=== PATIENT | female | born 1990 | race American Indian/Alaskan Native ===

== ENCOUNTER 2018-01-25 12:34 | Emergency (ER) | payer OTHER ==
[2018-01-25 12:34] VITALS: BMI 23.8
[2018-01-25 12:52] VITALS: TEMP 97.8; O2SAT 100
--- NOTE | 2018-01-25 12:57 | C.PDOC ---
History Of Present Illness 27 year old female with a history of seizures presents to the ER for evaluation of witnessed seizure. As per triage and patient family member, the patient was visiting family in ICU and had a witnessed seizure. Rapid response was called in ICU and patient was brought down to ED. Patient reports she takes Phenytoin for seizures but her PMD recently changed her medication to Keppra on 2017. She states she ate breakfast. Patient admits to feeling dizzy before seizure onset. Denies any cough, fever, chills, shortness of breath, nausea, vomiting, or other associated symptoms. Patient denies any trauma/injuries. Time Seen by Provider: 01/25/18 12:41 Chief Complaint (Nursing): Seizure History Per: Patient, Family History/Exam Limitations: no limitations Recent Seizure Activity Began: Just Before Arrival Number Of Seizures: One Precipitating Factor(s): Recent Change In Medication Or Dose Past Medical History Reviewed: Historical Data, Nursing Documentation, Vital Signs Vital Signs: Last Vital Signs Temp 97.8 F 01/25/18 12:52 Pulse 87 01/25/18 14:58 Resp 16 01/25/18 14:58 BP 102/66 01/25/18 14:58 Pulse Ox 100 01/25/18 14:58 - Medical History PMH: Asthma, Seizures Denies: Chronic Kidney Disease Surgical History: No Surg Hx Family History: States: No Known Family Hx - Social History Hx Alcohol Use: No Hx Substance Use: No - Immunization History Hx Tetanus Toxoid Vaccination: No Review Of Systems Constitutional: Negative for: Fever, Chills Respiratory: Negative for: Cough, Shortness of Breath Gastrointestinal: Negative for: Nausea, Vomiting Neurological: Positive for: Seizures (Postictal ), Dizziness Physical Exam - Physical Exam Appears: Non-toxic, No Acute Distress Skin: Normal Color, Warm, Dry Head: Atraumatic, Normacephalic Eye(s): bilateral: Normal Inspection Oral Mucosa: Moist Tongue: Normal Appearing Lips: Normal Appearing Gingiva: Normal Appearing Throat: Normal Neck: Normal ROM Chest: Symmetrical Cardiovascular: Rhythm Regular, No Murmur Respiratory: Normal Breath Sounds, No Rales, No Rhonchi, No Wheezing Extremity: Bilateral: Atraumatic, Normal Color And Temperature, Normal ROM Neurological/Psych: Oriented x3, Normal Speech Gait: Steady ED Course And Treatment - Laboratory Results Result Diagrams: 01/25/18 13:03 07/08/18 13:03 Lab Interpretation: No Acute Changes ECG: Interpreted By Me, Viewed By Me ECG Rhythm: Sinus Rhythm ECG Interpretation: No Acute Changes Rate From EC O2 Sat by Pulse Oximetry: 100 (RA) Pulse Ox Interpretation: Normal Medical Decision Making Medical Decision Making: Impression: seizure Plan: - EKG - Labs - UA Labs reviewed, phenytoin low, keppra level is send out and will result. Will give loading dose of medication. On assessment, patient is alert, awake and oriented and offers no complaints. Patient feels comfortable going home and will be discharged. Patient given follow up instructions. Instructed to return to ER if symptoms worsen or new symptoms arise. Disposition Counseled Patient/Family Regarding: Diagnosis, Need For Followup - Disposition Disposition: HOME/ ROUTINE Disposition Time: 14:11 Condition: STABLE Additional Instructions: Follow up with your primary medical doctor or clinic in 2-5 days for further evaluation. Take your usual seizure medications as prescribed. Return to the emergency department at any time if symptoms persist or worsen. Instructions: Seizures, Adult (DC) Forms: [employer] (Persian) - POA Present On Arrival: None - Clinical Impression Clinical Impression: Seizure disorder - PA / PERSONAL DRIVER / Resident Statement MD/DO has reviewed & agrees with the documentation as recorded. - Scribe Statement The provider has reviewed the documentation as recorded by the Scribe Salina Kaplan All medical record entries made by the Valentinoibsam were at my direction and personally dictated by me. I have reviewed the chart and agree that the record accurately reflects my personal performance of the history, physical exam, medical decision making, and the department course for this patient. I have also personally directed, reviewed, and agree with the discharge instructions and disposition.
[2018-01-25 13:10] LABS: BASO % 0.8 % (0.0-2.0); EOS # 0.6 K/uL (0.0-0.7); EOS % 9.8 % (0.0-4.0); HEMOGLOBIN 13.5 g/dL (11.0-16.0); LYMPH # 2.6 K/uL (1.0-4.3); LYMPH % 44.1 % (20.0-40.0); MEAN CELL VOLUME 82.5 fL (81.0-99.0); MEAN CORPUSCULAR HEMOGLOBIN 28.1 pg (27.0-31.0); MEAN PLATELET VOLUME 8.9 fL (7.2-11.7); MONO # 0.6 K/uL (0.0-0.8); MONO % 9.6 % (0.0-10.0); NEUT # 2.1 K/uL (1.8-7.0); NEUT % 35.7 % (50.0-75.0); NRBC % 0.1 % (0.0-2.0); RBC 4.81 Mil/uL (3.80-5.20); WHITE BLOOD COUNT 5.8 K/uL (4.8-10.8)
[2018-01-25 13:21] LABS: ALB/GLOB RATIO 1.2 (1.0-2.1); ALBUMIN 4.3 g/dL (3.5-5.0); ALT/SGPT 30 U/L (9-52); AST/SGOT 25 U/L (14-36); BLOOD UREA NITROGEN 7 mg/dL (7-17); CALCIUM 9.5 mg/dl (8.6-10.4); GFR AFRICAN-AMERICAN > 60; GFR NON-AFRICAN AMERICAN > 60
[2018-01-25] MEDS ORDERED: levETIRAcetam 100 mg/ml (5ml) Oral Syringe PO STA (14:09)
[2018-01-25 14:58] VITALS: BP 102/66; PULSE 87; RESP 16
--- NOTE | 2018-01-26 21:26 | CARD ---
APPROVED REPORT EKG Measurement Heart [id number] <Conclusion> Normal sinus rhythm Normal ECG
== END 2018-01-25 15:11 | disposition home or self-care (01) ==
LOC: C.ER 12:34
DX: G40.909 Epilepsy, unspecified, not intractable, without status epilepticus (principal)

== ENCOUNTER 2018-04-16 12:33 | Observation (INO) | payer OTHER ==
[2018-04-16 12:34] VITALS: BMI 23.8
--- NOTE | 2018-04-16 14:00 | C.PDOC ---
History Of Present Illness 27 year old female with a history of seizures was brought into the ED by EMS after falling while attempting to take her seizure medication. Patient reports onset of headache before falling and losing consciousness. Notes she was sheron gnosed with seizures 1 year ago by her doctor, prescribed medications, compliant with medications, headaches before and after seizures, and last seizure was 2 weeks ago. Also notes head injury s/p fall, neck pain, numbness and tingling to the right upper extremity and lower extremities. Notes she was diagnosed with seizures 1 year ago by her doctor. Denies fever, nausea, vomiting, and any other associated symptoms. Time Seen by Provider: 04/16/18 12:48 Chief Complaint (Nursing): Seizure History Per: Patient History/Exam Limitations: no limitations Recent Seizure Activity Began: Just Before Arrival Number Of Seizures: Multiple Associated Symptoms: Other (headaches ) Past Medical History Reviewed: Historical Data, Nursing Documentation, Vital Signs Vital Signs: Last Vital Signs Temp 97.8 F 04/16/18 12:46 Pulse 78 04/16/18 12:46 Resp 18 04/16/18 12:46 BP 118/73 04/16/18 12:46 Pulse Ox 100 04/16/18 12:46 - Medical History PMH: Asthma, Seizures Denies: Chronic Kidney Disease Family History: States: Unknown Family Hx - Social History Hx Alcohol Use: No Hx Substance Use: No - Immunization History Hx Tetanus Toxoid Vaccination: No Hx Influenza Vaccination: No Hx Pneumococcal Vaccination: No Review Of Systems Except As Marked, All Systems Reviewed And Found Negative. Constitutional: Negative for: Fever, Chills Gastrointestinal: Negative for: Nausea, Vomiting Musculoskeletal: Positive for: Neck Pain Neurological: Positive for: Weakness, Numbness, Incoordination, Seizures, Other (right hand and left lower extremities numbness and tingling.) Physical Exam - Physical Exam Appears: Non-toxic Skin: Normal Color, Warm, Dry Head: Normacephalic Eye(s): bilateral: Normal Inspection Nose: Normal Oral Mucosa: Moist Chest: Symmetrical, No Deformity Respiratory: No Accessory Muscle Use, Other (NARD) Extremity: Normal ROM (left upper extremity only), No Deformity Neurological/Psych: Oriented x3, Normal Speech, No Normal Motor, No Normal Sensation, Other (right hand and lower left extremity numbness) ED Course And Treatment - Laboratory Results Result Diagrams: 04/16/18 14:37 04/16/18 14:37 O2 Sat by Pulse Oximetry: 100 (RA) Pulse Ox Interpretation: Normal - CT Scan/US Brain w/ Coronal and Sagittal Other Rad Studies (CT/US): Read By Radiologist CT/US Interpretation: Findings: E[place]. No acute intraparenchymal hemorrhage. No mass lesion. No CT evidence for acute territorial infarct. No midline shift or extra-axial collections. Ventricles. No hydrocephalus. Orbitals: The orbitals are unremarkable. Sinus and MastoidsL. The paranasal sinuses and mastoid air cells are clear. Bones: No fracture. Impression: No acute intracrainal abnormality Medical Decision Making Medical Decision Making: Plan: --EKG --Blood sent. --Given lorazepam. --Urinalysis --Urine HCG Progress/Update: --Multiple seizures during ED visit. --Patient remains groggy, continued numbness to leg bilaterally, unable to sta nd, or ambulate. Case was discussed with Dr. Hernandez and advised patient be given Keppra. Keppra was given. Disposition Discussed With Dr.: Anand Hernandez Counseled Patient/Family Regarding: Studies Performed, Diagnosis, Need For Followup - Disposition Disposition: HOSPITALIZED Disposition Time: 16:14 Condition: GUARDED - Clinical Impression Clinical Impression: Seizure, Seizure disorder - Scribe Statement The provider has reviewed the documentation as recorded by the Scribe (Tennille Moraes) Provider Attestation: All medical record entries made by the Scribe were at my direction and personally dictated by me. I have reviewed the chart and agree that the record accurately reflects my personal performance of the history, physical exam, medical decision making, and the department course for this patient. I have also personally directed, reviewed, and agree with the discharge instructions and disposition. Decision To Admit - Pt Status Changed To: Hospital Disposition Of: Observation - . Bed Request Type: Regular Admitting Physician: Anand Hernandez Patient Diagnosis: Seizure, Seizure disorder
[2018-04-16 14:48] LABS: BASO # 0.1 K/uL (0.0-0.2); BASO % 0.8 % (0.0-2.0); EOS # 0.4 K/uL (0.0-0.7); EOS % 5.8 % (0.0-4.0); HEMOGLOBIN 12.6 g/dL (11.0-16.0); LYMPH # 3.3 K/uL (1.0-4.3); LYMPH % 44.9 % (20.0-40.0); MEAN CELL VOLUME 82.1 fL (81.0-99.0); MEAN CORPUSCULAR HEMOGLOBIN 28.2 pg (27.0-31.0); MEAN CORPUSCULAR HGB CONC 34.3 g/dL (33.0-37.0); MEAN PLATELET VOLUME 9.3 fL (7.2-11.7); MONO # 0.6 K/uL (0.0-0.8); MONO % 8.4 % (0.0-10.0); NEUT % 40.1 % (50.0-75.0); NRBC % 0.1 % (0.0-2.0); RBC 4.46 Mil/uL (3.80-5.20); WHITE BLOOD COUNT 7.4 K/uL (4.8-10.8)
[2018-04-16 14:58] LABS: BLOOD UREA NITROGEN 10 mg/dL (7-17); CALCIUM 9.6 mg/dl (8.6-10.4); GFR NON-AFRICAN AMERICAN > 60; SQUAMOUS EPITHIAL 2 /hpf (0-5); URINE BACTERIA RARE (<OCC); URINE BILIRUBIN NEGATIVE (NEGATIVE); URINE BLOOD NEGATIVE (NEGATIVE); URINE CLARITY Clear (Clear); URINE COLOR Yellow (YELLOW); URINE GLUCOSE (UA) NORMAL (Normal); URINE LEUKOCYTE ESTERASE 1+ Leu/uL (Negative); URINE PROTEIN NEGATIVE (NEGATIVE); URINE UROBILINOGEN NORMAL mg/dL (0.2-1.0)
[2018-04-16 15:00] LABS: HCG,QUALITATIVE URINE NEGATIVE (NEGATIVE)
[2018-04-16 15:02] LABS: ALB/GLOB RATIO 1.3 (1.0-2.1); ALBUMIN 4.5 g/dL (3.5-5.0); ALT/SGPT 10 U/L (9-52); AST/SGOT 39 U/L (14-36)
[2018-04-16 15:07] LABS: BARBITURATES, UR NEGATIVE (NEGATIVE); BENZODIAZEPINES, UR NEGATIVE (NEGATIVE); OPIATES, UR NEGATIVE (NEGATIVE); PHENCYCLIDINE, UR NEGATIVE (NEGATIVE)
[2018-04-16] MEDS ORDERED: levETIRAcetam 100 mg/ml (5ml) Oral Syringe PO STA (16:17)
--- NOTE | 2018-04-16 19:43 | CP.PCM.HP ---
History of Present Illness - History of Present Illness History of Present Illness: COMPREHENSIVE HISTORY & PHYSICAL EXAM Patient is admitted from emergency room with history of seizures HPI Patient had 2 or 3 seizures in the emergency room responding with IV Ativan. Patient is under the care of the neurologist for seizure disorder and patient is on Keppra 500 twice a day. Apparently patient is getting more frequent seizures since yesterday. There is no history of head injury or previous history of seizures or any other medical illness in the past PAST HIST. PERSONAL HIST: Smoking. N Alcohol. N Allergy N Travel_- . FAMILY HIST : ROS : Constitutional: Negative for weight change, chills, night sweats, fatigue and usage of assist device. Eyes: Negative for redness, swelling, itching, discharge, vision changes, blurry vision, double vision, glaucoma, cataracts, Ears: Negative for hearing loss, ringing, , tinnitus, vertigo Nose: Negative for rhinorrhea, stuffiness, sniffing, itching, postnasal drip, discoloration, nasal congestion and epistaxis. Throat: Negative for throat clearing, sore throat, hoarseness, difficulty swallowing and difficulty speaking. Respiratory: Negative for cough, , sputum production, chest tightness, wheezing, pleuritic chest pain ,daytime somnolence, chronic cough, hemoptysis, snoring at night, Cardiovascular: Negative for chest pain, palpitations, orthopnea, PND, Edema of legs, leg cramps, angina, claudication, , irregular heartbeat, Neurology: Negative for irritability, muscle weakness, numbness and tingling, seizures, tremors, migraines, slurred speech, syncope, memory loss, mood changes, recurrent headaches Gastrointestinal: Negative for difficulty swallowing, diarrhea, constipation, black stools, rectal bleeding, nausea, flatulence, reflux, poor appetite, changes in bowel habits, abdominal pain Genitourinary: Negative for frequent urination, hematuria, discharge, incontinence, urinary retention, frequent UTI, Psychiatric: Negative for depression, anxiety/panic, suicidal tendencies, Musculoskeletal: Negative for swollen joints, back pain, , neck pain, morning stiffness of joints, . Skin: Negative for rash, ulcers, itching, dry skin and pigmented lesions. P/E: Constitutional: Appears stated age and in no apparent distress. Head: Normocephalic. Ears: External ear canals patent without inflammation. Tympanic membranes intact with normal light reflex and landmark. Eyes: Pupils are central, bilaterally equal, symmetrical and reacts to light with normal movements and no icterus or pallor. Nose: External nares are patent. Mucosa is pink Mouth-Throat: Good general appearance and condition. No post-pharyngeal/oropharyngeal erythema and tonsillar hypertrophy. Good dental hygiene. Neck-Lymphatic: Neck is supple with normal ROM, no thyromegaly, lymph nodes or masses. JVD is normal with no carotid bruit. Lungs: Clear to percussion and auscultation with bilateral normal air entry. Cardiovascular: S1 and S2 are normal with no murmurs, gallops and rub. GI Exam: No hepatomegaly. Abdomen is soft and non-tender. No Organomegaly , masses or hernias are evident and bowel sounds are normal and active. Neurology: Higher function and all cranial nerves intact, with no gross motor or sensory deficit. Superficial and deep reflexes are normal with downwards planters. No cerebellar deficit with normal gait. Musculoskeletal: No tender spots with normal curvature of the spine with no swelling or restricted ROM of the small and large joints. Extremities: Homans sign absent. Intact pulses with no pitting edema, calf tenderness or skin color changes. Skin: No rash, eruptions or abnormal skin pigmentation LAB/RADIOLOGY: ASSESMENT : Recurrent seizures etiology to be determined PLAN: Continue Keppra and Ativan when necessary CT of the head and EEG Present on Admission - Present on Admission Any Indicators Present on Admission: No Past Patient History - Infectious Disease Hx of Infectious Diseases: None - Past Social History Smoking Status: Never Smoked - CARDIAC Hx Cardiac Disorders: No - PULMONARY Hx Asthma: Yes - NEUROLOGICAL Hx Seizures: Yes - HEENT Hx HEENT Problems: No - RENAL Hx Chronic Kidney Disease: No - ENDOCRINE/METABOLIC Hx Endocrine Disorders: No - HEMATOLOGICAL/ONCOLOGICAL Hx Blood Disorders: No - INTEGUMENTARY Hx Dermatological Problems: No - MUSCULOSKELETAL/RHEUMATOLOGICAL Hx Musculoskeletal Disorders: No - GASTROINTESTINAL Hx Gastrointestinal Disorders: No - GENITOURINARY/GYNECOLOGICAL Hx Genitourinary Disorders: No - PSYCHIATRIC Hx Substance Use: No - SURGICAL HISTORY Hx Surgeries: No - ANESTHESIA Hx Anesthesia: Yes Hx Anesthesia Reactions: No Hx Malignant Hyperthermia: No Meds Allergies/Adverse Reactions: Allergies Allergy/AdvReac Type Severity Reaction Status Date / Time pineapple Allergy Verified 04/16/18 12:44 cantaloupe Allergy Uncoded 04/16/18 12:44 Results - Vital Signs Recent Vital Signs: Last Vital Signs Temp 97.6 F 04/16/18 18:00 Pulse 83 04/16/18 18:00 Resp 20 04/16/18 18:00 BP 104/71 04/16/18 18:00 Pulse Ox 100 04/16/18 18:00 - Labs Result Diagrams: 04/16/18 14:37 04/16/18 14:37 Labs: Laboratory Results - last 24 hr 04/16/18 04/16/18 04/16/18 14:37 14:37 14:37 WBC 7.4 RBC 4.46 Hgb 12.6 Hct 36.6 MCV 82.1 MCH 28.2 MCHC 34.3 RDW 13.0 Plt Count 268 MPV 9.3 Neut % (Auto) 40.1 L Lymph % (Auto) 44.9 H [place] % (Auto) 8.4 Eos % (Auto) 5.8 H Baso % (Auto) 0.8 Neut # (Auto) 3.0 Lymph # (Auto) 3.3 [place] # (Auto) 0.6 Eos # (Auto) 0.4 Baso # (Auto) 0.1 Sodium 140 Potassium 4.3 Chloride 104 Carbon Dioxide 24 Anion Gap 16 BUN 10 Creatinine 0.6 L Est GFR ( Amer) > 60 Est GFR (Non-Af Amer) > 60 POC Glucose (mg/dL) Random Glucose 95 Calcium 9.6 Total Bilirubin 0.8 AST 39 H D ALT 10 Alkaline Phosphatase 76 Total Protein 8.1 Albumin 4.5 Globulin 3.6 Albumin/Globulin Ratio 1.3 Urine Color Yellow Urine Clarity Clear Urine pH 7.0 Ur Specific [place] 1.008 Urine Protein Negative Urine Glucose (UA) Normal Urine Ketones Negative Urine Blood Negative Urine Nitrate Negative Urine Bilirubin Negative Urine Urobilinogen Normal Ur Leukocyte Esterase 1+ H Urine WBC (Auto) 7 H Urine RBC (Auto) < 1 Ur Squamous Epith Cells 2 Urine Bacteria Rare Urine HCG, Qual Negative Urine Opiates Screen Urine Methadone Screen Ur Barbiturates Screen Ur Phencyclidine Scrn Ur Amphetamines Screen U Benzodiazepines Scrn U Oth Cocaine Metabols U Cannabinoids Screen 04/16/18 04/16/18 14:37 14:52 WBC RBC Hgb Hct MCV MCH MCHC RDW Plt Count MPV Neut % (Auto) Lymph % (Auto) [place] % (Auto) Eos % (Auto) Baso % (Auto) Neut # (Auto) Lymph # (Auto) [place] # (Auto) Eos # (Auto) Baso # (Auto) Sodium Potassium Chloride Carbon Dioxide Anion Gap BUN Creatinine Est GFR ( Amer) Est GFR (Non-Af Amer) POC Glucose (mg/dL) 91 Random Glucose Calcium Total Bilirubin AST ALT Alkaline Phosphatase Total Protein Albumin Globulin Albumin/Globulin Ratio Urine Color Urine Clarity Urine pH Ur Specific [place] Urine Protein Urine Glucose (UA) Urine Ketones Urine Blood Urine Nitrate Urine Bilirubin Urine Urobilinogen Ur Leukocyte Esterase Urine WBC (Auto) Urine RBC (Auto) Ur Squamous Epith Cells Urine Bacteria Urine HCG, Qual Urine Opiates Screen Negative Urine Methadone Screen Negative Ur Barbiturates Screen Negative Ur Phencyclidine Scrn Negative Ur Amphetamines Screen Negative U Benzodiazepines Scrn Negative U Oth Cocaine Metabols Negative U Cannabinoids Screen Negative
--- NOTE | 2018-04-17 01:15 | PCM.RRT ---
PROJECT CONTROLLER Nurses Assessment - Situation Date: 04/16/18 Time PROJECT CONTROLLER was called: 20:33 PROJECT CONTROLLER Responder Arrival Time:: 20:36 PROJECT CONTROLLER Location:: Med/Oncology Room Number: 365A PROJECT CONTROLLER Reason for Call: Change in Mental Status PROJECT CONTROLLER Called By: RN - IV IV Inserted during PROJECT CONTROLLER?: No - Respiratory PROJECT CONTROLLER Delivery Method: Nasal Cannula @L/min Oxygen Flow Rate: 3 Received Nebulizer Treatments: No Was the Patient Ventilated with Bag/Mask 100% O2?: No Secretions Suctioned?: No Was the Patient Intubated?: No Was the Patient Placed on a Ventilator?: No - Medication Medications Administered During PROJECT CONTROLLER: Ativan 1 mg, Ativan 2 mg, Seroquel 25mg - Diagnostic Test Ordered EKG: No (taken in ER) Chest X-Ray: No CT Scan: (taken earlier in shift) Other Diagnostic Test Ordered: CT Head w/o Contrast CPR started during PROJECT CONTROLLER?: No - Vital Signs Vital Signs: Rapid Response Vital Sign Blood Pressure 105/72 Pulse Rate 99 Respiratory Rate 16 Temperature 98.1 F Oxygen Saturation 100 - Time PROJECT CONTROLLER Ended Time PROJECT CONTROLLER Ended: 23:20 - Vital Signs at end of PROJECT CONTROLLER Vital Signs at end of PROJECT CONTROLLER: Rapid Response End Vital Sign Blood Pressure 100/67 Pulse Rate 84 Respiratory Rate 18 Temperature 98.1 F O2 Sat by Pulse Oximetry 100 - Recommendations Notifications: Attending Physician, Consultations, Family or Designated Caregiver I.Reason for PROJECT CONTROLLER - A) Acute Change in Patient: Subjective: Rapid Response was called at 12:32am by nursing staff for convulsions. Rapid response team arrived at 12:35am. Per nursing patient has two witness seizures each lasting prior to team arriving. The first seizure lasted 5 seconds. The second seizure lasted 10 seconds. Upon arrival, the patient was awake, alert and oriented. She was unaware of what was going on. While at the bedside, the patient had another seizure that lasted 30 seconds. Patient's eyes were flickering, rolled back and patient was moving her upper extremities. 1mg of Ativan was given. After seizure patient was found to have right sided weakness. Unable to move right arm and right leg with decreased hand solution mixer strength. Patient had a 4th seizure that lasted 10 seconds and a 5th seizure that lasted 30 seconds. She received Ativan 2mg. Dr. Rabago contacted and ordered Seroquel 25mg PO STAT for the patient. Patient was transferred to telemetry for further monitoring. Family notified. - Respiratory Oxygen Delivery Method: Nasal Cannula @L/min Oxygen Flow Rate: 3 - Constitutional Appears: Non-toxic - Head Head Exam: ATRAUMATIC, NORMAL INSPECTION, NORMOCEPHALIC - Eyes Eye Exam: EOMI, Normal appearance - Respiratory Exam Respiratory Exam: Clear to Ausculation Bilateral, NORMAL BREATHING PATTERN. absent: Rales, Rhonchi, Wheezes - Cardiovascular Exam Cardiovascular Exam: REGULAR RHYTHM, +S1, +S2 - GI/Abdominal Exam GI & Abdominal Exam: Soft - Neurological Exam Neurological Exam: Alert, Awake, Oriented x3 Additional exam: +right upper extremity and right lower extremity weakness - Extremities Exam Extremities Exam: Normal Inspection Plan - Assessment of Findings&Treatment Plan -Transfer to Telemetry -Dr Rabago notified, will see patient in the morning -Seroquel 25mg PO STAT given per Neurology recommendations -EEG tomorrow Plan discussed with Dr Mellisa Klein DO PGY-2
--- NOTE | 2018-04-17 07:14 | CT ---
Date of service: 04/16/2018 PROCEDURE: CT HEAD WITHOUT CONTRAST. HISTORY: head injury s/p tonic clonic seizure COMPARISON: None available. TECHNIQUE: Axial computed tomography images were obtained through the head/brain without intravenous contrast. Radiation dose: Total exam DLP = 940 mGy-cm. This CT exam was performed using one or more of the following dose reduction techniques: Automated exposure control, adjustment of the mA and/or kV according to patient size, and/or use of iterative reconstruction technique. FINDINGS: HEMORRHAGE: No intracranial hemorrhage. BRAIN: No mass effect or edema. No atrophy or chronic microvascular ischemic changes. VENTRICLES: Unremarkable. No hydrocephalus. CALVARIUM: Unremarkable. PARANASAL SINUSES: Unremarkable as visualized. No significant inflammatory changes. MASTOID AIR CELLS: Unremarkable as visualized. No inflammatory changes. OTHER FINDINGS: None. IMPRESSION: No acute intracranial abnormality. If symptoms persists, consider correlation with MRI. These findings were preliminarily reported at 9:11 p.m. on 04/16/[address] iLnnea Frank from [employer].
--- NOTE | 2018-04-17 10:42 | CP.PCM.CON ---
History of Present Illness - History of Present Illness History of Present Illness: PGY-2 Neurology Consult Note: Dr. Rabago's Service 27 year old female with past medical history of seizures comes into the hospital after reporting seizure activity at home. Patient also reportedly had 3 seizures while in the emergency department that was responsive to ativan. During out interview patient was guarded and didn't complete ROS . Medical history: Seizure Medications: Unable to remember name of seizure medication Surgical history: Denies Allergies: Pineapple, cantalope Review of Systems - Constitutional Constitutional: absent: Chills, Daytime Sleepiness, Headache, Snoring, Weakness - EENT Eyes: absent: Blurred Vision, Requires Corrective Lenses Ears: Dizziness. absent: Decreased Hearing, Ear Discharge, Disequilibrium Nose/Mouth/Throat: absent: Nasal Congestion, Nasal Trauma, Bleeding Gums, Dysphagia, Mouth Pain, Facial Pain - Cardiovascular Cardiovascular: absent: Chest Pain, Claudication, Irregular Heart Rhythm, Leg Edema, Pedal Edema, Syncope - Respiratory Respiratory: absent: Hemoptysis, Stridor, Excessive Mucous Production - Gastrointestinal Gastrointestinal: absent: Belching, Change in Stool Character, Diarrhea, Fecal Incontinence, Loose Stools, Vomiting - Genitourinary Genitourinary: absent: Change in Urinary Stream, Nocturia, Urinary Hesitance, Freq UTI, Bladder Distension - Musculoskeletal Musculoskeletal: absent: Arthralgias, Atrophy, Limited Range of Motion, Myalgias, Tingling - Integumentary Integumentary: absent: Bleeding Lesions, Change in Pigmentation, Lesions, Photosensitivity, Swelling - Neurological Neurological: Dizziness. absent: Disequilibrium, Headaches, Loss of Vision, Restless Legs Past Patient History - Infectious Disease Hx of Infectious Diseases: None - Past Social History Smoking Status: Never Smoked - CARDIAC Hx Cardiac Disorders: No - PULMONARY Hx Asthma: Yes - NEUROLOGICAL Hx Seizures: Yes - HEENT Hx HEENT Problems: No - RENAL Hx Chronic Kidney Disease: No - ENDOCRINE/METABOLIC Hx Endocrine Disorders: No - HEMATOLOGICAL/ONCOLOGICAL Hx Blood Disorders: No - INTEGUMENTARY Hx Dermatological Problems: No - MUSCULOSKELETAL/RHEUMATOLOGICAL Hx Musculoskeletal Disorders: No - GASTROINTESTINAL Hx Gastrointestinal Disorders: No - GENITOURINARY/GYNECOLOGICAL Hx Genitourinary Disorders: No - PSYCHIATRIC Hx Substance Use: No - SURGICAL HISTORY Hx Surgeries: No - ANESTHESIA Hx Anesthesia: Yes Hx Anesthesia Reactions: No Hx Malignant Hyperthermia: No Meds Allergies/Adverse Reactions: Allergies Allergy/AdvReac Type Severity Reaction Status Date / Time pineapple Allergy Verified 04/16/18 12:44 cantaloupe Allergy Uncoded 04/16/18 12:44 - Medications Medications: Current Medications Acetaminophen (Tylenol 325mg Tab) 650 mg PO Q6 PRN PRN Reason: Pain, Mild (1-3) Levetiracetam (Keppra) 500 mg PO BID [facility]IE Last Admin: 04/17/18 10:01 Dose: 500 mg Pneumococcal Polyvalent Vaccine (Pneumovax 23 Vaccine) 0.5 ml IM .ONCE ONE Stop: 04/18/18 10:01 Physical Exam - Head Exam Head Exam: NORMAL INSPECTION, NORMOCEPHALIC - Eye Exam Eye Exam: EOMI, Normal appearance, PERRL. absent: Periorbital tenderness Pupil Exam: NORMAL ACCOMODATION - ENT Exam ENT Exam: Mucous Membranes Moist, Normal Oropharynx - Respiratory Exam Respiratory Exam: Clear to Auscultation Bilateral, NORMAL BREATHING PATTERN. absent: Prolonged Expiratory Phase, Respiratory Distress - Cardiovascular Exam Cardiovascular Exam: REGULAR RHYTHM, RRR, +S1, +S2. absent: Rubs - GI/Abdominal Exam GI & Abdominal Exam: Normal Bowel Sounds, Soft. absent: Tenderness - Extremities Exam Extremities exam: Positive for: normal inspection. Negative for: full ROM, pedal edema - Back Exam Back exam: NORMAL INSPECTION. absent: CVA tenderness (L), CVA tenderness (R), paraspinal tenderness - Neurological Exam Neurological exam: Alert, CN II-XII Intact, Oriented x3 - Psychiatric Exam Psychiatric exam: Normal Affect, Normal Mood - Skin Skin Exam: Dry, Intact, Normal Color Results - Vital Signs Recent Vital Signs: Last Vital Signs Temp 97.8 F 04/17/18 07:00 Pulse 79 04/17/18 07:10 Resp 20 04/17/18 07:00 BP 97/62 L 04/17/18 07:00 Pulse Ox 98 04/17/18 08:00 - Labs Result Diagrams: 04/16/18 14:37 04/16/18 14:37 Labs: Laboratory Results - last 24 hr 04/16/18 04/16/18 04/16/18 14:37 14:37 14:37 WBC 7.4 RBC 4.46 Hgb 12.6 Hct 36.6 MCV 82.1 MCH 28.2 MCHC 34.3 RDW 13.0 Plt Count 268 MPV 9.3 Neut % (Auto) 40.1 L Lymph % (Auto) 44.9 H Gregory % (Auto) 8.4 Eos % (Auto) 5.8 H Baso % (Auto) 0.8 Neut # (Auto) 3.0 Lymph # (Auto) 3.3 Gregory # (Auto) 0.6 Eos # (Auto) 0.4 Baso # (Auto) 0.1 Sodium 140 Potassium 4.3 Chloride 104 Carbon Dioxide 24 Anion Gap 16 BUN 10 Creatinine 0.6 L Est GFR ( Amer) > 60 Est GFR (Non-Af Amer) > 60 POC Glucose (mg/dL) Random Glucose 95 Calcium 9.6 Total Bilirubin 0.8 AST 39 H D ALT 10 Alkaline Phosphatase 76 Total Protein 8.1 Albumin 4.5 Globulin 3.6 Albumin/Globulin Ratio 1.3 Urine Color Yellow Urine Clarity Clear Urine pH 7.0 Ur Specific [place] 1.008 Urine Protein Negative Urine Glucose (UA) Normal Urine Ketones Negative Urine Blood Negative Urine Nitrate Negative Urine Bilirubin Negative Urine Urobilinogen Normal Ur Leukocyte Esterase 1+ H Urine WBC (Auto) 7 H Urine RBC (Auto) < 1 Ur Squamous Epith Cells 2 Urine Bacteria Rare Urine HCG, Qual Negative Urine Opiates Screen Urine Methadone Screen Ur Barbiturates Screen Ur Phencyclidine Scrn Ur Amphetamines Screen U Benzodiazepines Scrn U Oth Cocaine Metabols U Cannabinoids Screen 04/16/18 04/16/18 14:37 14:52 WBC RBC Hgb Hct MCV MCH MCHC RDW Plt Count MPV Neut % (Auto) Lymph % (Auto) Gregory % (Auto) Eos % (Auto) Baso % (Auto) Neut # (Auto) Lymph # (Auto) Gregory # (Auto) Eos # (Auto) Baso # (Auto) Sodium Potassium Chloride Carbon Dioxide Anion Gap BUN Creatinine Est GFR ( Amer) Est GFR (Non-Af Amer) POC Glucose (mg/dL) 91 Random Glucose Calcium Total Bilirubin AST ALT Alkaline Phosphatase Total Protein Albumin Globulin Albumin/Globulin Ratio Urine Color Urine Clarity Urine pH Ur Specific [place] Urine Protein Urine Glucose (UA) Urine Ketones Urine Blood Urine Nitrate Urine Bilirubin Urine Urobilinogen Ur Leukocyte Esterase Urine WBC (Auto) Urine RBC (Auto) Ur Squamous Epith Cells Urine Bacteria Urine HCG, Qual Urine Opiates Screen Negative Urine Methadone Screen Negative Ur Barbiturates Screen Negative Ur Phencyclidine Scrn Negative Ur Amphetamines Screen Negative U Benzodiazepines Scrn Negative U Oth Cocaine Metabols Negative U Cannabinoids Screen Negative Assessment & Plan - Assessment and Plan (Free Text) Assessment: 27 year old female with past medical history of seizures admitted for seizures. Plan: 1.Seizures Head ct: negative for acute process Video EEG ordered. Will have to transfer to [facility] to complete. Medicatons: Keppra 500mg Q12 iv Plans discussed with Dr.Rao Al Maria, PGY-2
--- NOTE | 2018-04-17 11:48 | CARD ---
APPROVED REPORT Date of service: 04/16/2018 EKG Measurement Heart [id number] <Conclusion> Normal sinus rhythm with sinus arrhythmia Normal ECG
--- NOTE | 2018-04-17 13:43 | CP.PCM.PN ---
Subjective - Date & Time of Evaluation Date of Evaluation: 04/17/18 Time of Evaluation: 13:42 - Subjective Subjective: patient had a few more seizures in the hospital during the night. Patient was given Ativan currently patient is post ictal CAT scan of the head was done which shows no abnormality EEG is pending Follow-up with neurology Objective - Vital Signs/Intake and Output Vital Signs (last 24 hours): Temp Pulse Resp BP Pulse Ox 97.8 F 100 H 20 97/66 L 100 04/17/18 07:00 04/17/18 13:12 04/17/18 13:12 04/17/18 13:12 04/17/18 13:12 - Medications Medications: Current Medications Acetaminophen (Tylenol 325mg Tab) 650 mg PO Q6 PRN PRN Reason: Pain, Mild (1-3) Levetiracetam (Keppra) 500 mg PO BID HOWIE Last Admin: 04/17/18 10:01 Dose: 500 mg Pneumococcal Polyvalent Vaccine (Pneumovax 23 Vaccine) 0.5 ml IM .ONCE ONE Stop: 04/18/18 10:01 - Labs Labs: 04/16/18 14:37 04/16/18 14:37
[2018-04-17] MEDS ORDERED: Divalproex 500 mg DR Tab PO ONE (22:55)
--- NOTE | 2018-04-17 23:57 | PCM.RRT ---
PRODUCTION BROACHER Nurses Assessment - Situation Date: 04/17/18 Time PRODUCTION BROACHER was called: 22:41 PRODUCTION BROACHER Responder Arrival Time:: 22:43 PRODUCTION BROACHER Location:: Med/Surg Room Number: 557a PRODUCTION BROACHER Reason for Call: Change in Mental Status PRODUCTION BROACHER Called By: RN - IV IV Inserted during PRODUCTION BROACHER?: No - Respiratory PRODUCTION BROACHER Delivery Method: Non Rebreather @% Received Nebulizer Treatments: No Was the Patient Ventilated with Bag/Mask 100% O2?: No Secretions Suctioned?: No Was the Patient Intubated?: No Was the Patient Placed on a Ventilator?: No - Medication Medications Administered During PRODUCTION BROACHER: ATIVAN 2MG IVP - Diagnostic Test Ordered EKG: No Chest X-Ray: No CT Scan: Yes (head CT s/p unwitnessed fall) Other Diagnostic Test Ordered: HEAD CT CPR started during PRODUCTION BROACHER?: No - Vital Signs Vital Signs: Rapid Response Vital Sign Blood Pressure 147/48 Pulse Rate 111 Respiratory Rate 24 Temperature 98.1 F Oxygen Saturation 100 - Time PRODUCTION BROACHER Ended Time PRODUCTION BROACHER Ended: 22:58 - Vital Signs at end of PRODUCTION BROACHER Vital Signs at end of PRODUCTION BROACHER: Rapid Response End Vital Sign Blood Pressure 107/69 Pulse Rate 95 Respiratory Rate 24 Temperature 98.1 F O2 Sat by Pulse Oximetry 100 - Recommendations Notifications: Consultations I.Reason for PRODUCTION BROACHER - A) Acute Change in Patient: (Select all that apply): Acute change in mental status ( ) Subjective: PRODUCTION BROACHER called after pt was found lying on floor next to bed in room, actively seizing. Pt transferred back to bed. After approx 2 min, 2mg Ativan was give. Seizure broke. Pt was mildly post ictal, vitals WNL as stated within. Exam WNL as stated within. Pt reported her head hurt from the fall. Decision was made to obtain head CT. Dr. Rabago was called to obtain prn ativan for future episodes. While en route to CT another PRODUCTION BROACHER was called and transport and nursing witnessed 2 subsequent seizures. On arrival pt was no longer seizing. 1mg ativan given just prior to ct. Pt transported back to room. - Respiratory Oxygen Delivery Method: Non Rebreather @% - Constitutional Appears: Non-toxic - Head Head Exam: NORMAL INSPECTION, NORMOCEPHALIC - Respiratory Exam Respiratory Exam: Clear to Ausculation Bilateral, NORMAL BREATHING PATTERN. absent: Rhonchi, Wheezes - Cardiovascular Exam Cardiovascular Exam: REGULAR RHYTHM. absent: Tachycardia, Murmur - GI/Abdominal Exam GI & Abdominal Exam: Soft, Normal Bowel Sounds. absent: Distended - Neurological Exam Neurological Exam: Awake - Extremities Exam Extremities Exam: Normal Inspection Plan - Assessment of Findings&Treatment Plan 27 yo female w/ PMHx of seizure disorder, admitted w/ recurrent seizures recurrent seizures -ativan 2mg IV given -Dr. Rabago called by nursing requesting ativan prn given depakote 1000mg and seroquel 25mg s/p fall -code star initially called, unwitnessed fall w/ concurrent seizure -Head CT for acute pathology
[2018-04-18] MEDS ORDERED: Divalproex 500 mg DR Tab PO ONE (02:45)
[2018-04-18 05:33] VITALS: RESP 20
[2018-04-18 08:47] LABS: BASO # 0.1 K/uL (0.0-0.2); BASO % 1.1 % (0.0-2.0); EOS # 0.6 K/uL (0.0-0.7); EOS % 8.2 % (0.0-4.0); HEMOGLOBIN 13.6 g/dL (11.0-16.0); LYMPH # 2.9 K/uL (1.0-4.3); LYMPH % 43.2 % (20.0-40.0); MEAN CELL VOLUME 81.4 fL (81.0-99.0); MEAN CORPUSCULAR HEMOGLOBIN 27.6 pg (27.0-31.0); MEAN CORPUSCULAR HGB CONC 33.9 g/dL (33.0-37.0); MEAN PLATELET VOLUME 8.6 fL (7.2-11.7); MONO # 0.5 K/uL (0.0-0.8); MONO % 6.7 % (0.0-10.0); NEUT # 2.7 K/uL (1.8-7.0); NEUT % 40.8 % (50.0-75.0); NRBC % 0.1 % (0.0-2.0); RBC 4.92 Mil/uL (3.80-5.20); RED CELL DISTRIBUTION WIDTH 12.9 % (11.5-14.5); WHITE BLOOD COUNT 6.7 K/uL (4.8-10.8)
[2018-04-18 09:10] LABS: ALB/GLOB RATIO 1.2 (1.0-2.1); ALBUMIN 4.2 g/dL (3.5-5.0); ALT/SGPT 22 U/L (9-52); AST/SGOT 20 U/L (14-36); BLOOD UREA NITROGEN 9 mg/dL (7-17); CALCIUM 9.7 mg/dl (8.6-10.4); GFR NON-AFRICAN AMERICAN > 60
--- NOTE | 2018-04-18 09:50 | CT ---
Date of service: 04/17/2018 at 2312 hr PROCEDURE: CT HEAD WITHOUT CONTRAST. HISTORY: S/P FALL COMPARISON: Comparison made with prior CT scan brain 04/16/2018 at 1953 hr. TECHNIQUE: Axial computed tomography images were obtained through the head/brain without intravenous contrast. Radiation dose: Total exam DLP = 940.25 mGy-cm. This CT exam was performed using one or more of the following dose reduction techniques: Automated exposure control, adjustment of the mA and/or kV according to patient size, and/or use of iterative reconstruction technique. FINDINGS: HEMORRHAGE: No intracranial hemorrhage. BRAIN: No mass effect or edema. No atrophy or chronic microvascular ischemic changes. VENTRICLES: Unremarkable. No hydrocephalus. CALVARIUM: Unremarkable. PARANASAL SINUSES: Unremarkable as visualized. No significant inflammatory changes. MASTOID AIR CELLS: Unremarkable as visualized. No inflammatory changes. OTHER FINDINGS: None. IMPRESSION: No acute intracranial hemorrhage. Preliminary report was provided by overnight radiology service. The the the
[2018-04-18] MEDS ORDERED: Pneumococcal 23-Valent Vaccine IM ONE (10:00)
[2018-04-18] MEDS: Divalproex 250 mg DR Tab PO SCH ×2 (10:31→17:17)
--- NOTE | 2018-04-18 14:43 | CP.PCM.PN ---
Subjective - Date & Time of Evaluation Date of Evaluation: 04/18/18 Time of Evaluation: 14:42 - Subjective Subjective: Patient continued to have recurrent seizures at 2304 episodes last night. Seizures was controlled with IV Ativan. Repeat CAT scan of the head was negative for any injury or any other abnormality. Video EEG is ordered currently not available in [facility], neurology has to make arrangements to be transferred to [facility]. Objective - Vital Signs/Intake and Output Vital Signs (last 24 hours): Temp Pulse Resp BP Pulse Ox 98.4 F 86 20 91/52 L 99 04/18/18 08:00 04/18/18 08:00 04/18/18 08:00 04/18/18 08:00 04/18/18 12:00 Intake and Output: 04/18/18 04/18/18 11:59 23:59 Output Total 500 Balance -500 - Medications Medications: Current Medications Acetaminophen (Tylenol 325mg Tab) 650 mg PO Q6 PRN PRN Reason: Pain, Mild (1-3) Last Admin: 04/17/18 17:14 Dose: 650 mg Divalproex Sodium (Depakote Dr) 750 mg PO BID [facility] Last Admin: 04/18/18 10:31 Dose: 750 mg Levetiracetam 500 mg/ Dextrose 105 mls @ 420 mls/hr IVPB Q12H [facility] Last Admin: 04/18/18 13:47 Dose: 420 mls/hr - Labs Labs: 04/18/18 08:33 04/18/18 08:33
--- NOTE | 2018-04-18 20:34 | PCM.RRT ---
MOSAICIST Nurses Assessment - Situation Date: 04/18/18 Time MOSAICIST was called: 19:45 MOSAICIST Responder Arrival Time:: 19:47 MOSAICIST Location:: Med/Surg Room Number: 558 B MOSAICIST Reason for Call: Respiratory Distress, Change in Mental Status MOSAICIST Called By: RN - IV IV Inserted during MOSAICIST?: No New IV Insertion Tolerance: Good - Respiratory MOSAICIST Delivery Method: Nasal Cannula @L/min Oxygen Flow Rate: 2 Received Nebulizer Treatments: No Was the Patient Ventilated with Bag/Mask 100% O2?: Yes Secretions Suctioned?: No Was the Patient Intubated?: No Was the Patient Placed on a Ventilator?: No - Medication Medications Administered During MOSAICIST: Ativan 2mg - Diagnostic Test Ordered EKG: Yes Chest X-Ray: No CT Scan: No CPR started during MOSAICIST?: No - Vital Signs Vital Signs: Rapid Response Vital Sign Blood Pressure 161/84 Pulse Rate 118 Respiratory Rate 14 Temperature 98.1 F Oxygen Saturation 94 - Renetta Coma Scale Coma Scale Eye Opening: No response Coma Scale Motor: Flexion in response pain Coma Scale Verbal: Confused/able to answer Coma Scale Total: 8 - Time MOSAICIST Ended Time MOSAICIST Ended: 20:00 - Vital Signs at end of MOSAICIST Vital Signs at end of MOSAICIST: Rapid Response End Vital Sign Blood Pressure 96/64 Pulse Rate 112 Respiratory Rate 20 Temperature 98.1 F O2 Sat by Pulse Oximetry 100 - Recommendations Notifications: Attending Physician I.Reason for MOSAICIST - A) Acute Change in Patient: Subjective: Rapid response was called on this pt w/ recurrent seizures for respiratory distress s/p seizure like activity. Boyfriend in room w/ pt. Pt was placed on O2, 15L. Vitals showed pt spO2 of 100% on O2. Pt was slow to arouse. Pt then sustained another seizure. Ativan 2mg IV given w/ termination of seizure. Patient became more responsive, answering questions and following commands. Vitals stable as provided. Spoke w/ Dr. Rabago who requested Seroguel 25mg and Ativan 2mg prn for future seizures. - Respiratory Oxygen Delivery Method: Nasal Cannula @L/min Oxygen Flow Rate: 2 - Constitutional Appears: Non-toxic - Head Head Exam: ATRAUMATIC, NORMAL INSPECTION, NORMOCEPHALIC - Eyes Eye Exam: Normal appearance - Respiratory Exam Respiratory Exam: Clear to Ausculation Bilateral, NORMAL BREATHING PATTERN. absent: Rhonchi, Wheezes - Cardiovascular Exam Cardiovascular Exam: Tachycardia, REGULAR RHYTHM, +S1, +S2. absent: Murmur - GI/Abdominal Exam GI & Abdominal Exam: Soft, Normal Bowel Sounds. absent: Tenderness - Neurological Exam Neurological Exam: Awake - Extremities Exam Extremities Exam: Normal Inspection. absent: Pedal Edema Plan - Assessment of Findings&Treatment Plan 27 year old female w/ seizure disorder s/p seizure w/ respiratory distress -placed on O2, satting @100% -seroquel 25mg and ativan 2mg given w/ ativan 2mg prn for subsequent seizures, per Dr. Rabago -plan for transfer to [place] for 24hr EEG video monitoring tomorrow am per Dr. Rabago and Mary
--- NOTE | 2018-04-19 02:57 | CP.PCM.PN ---
Subjective - Date & Time of Evaluation Date of Evaluation: 04/18/18 Time of Evaluation: 15:00 - Subjective Subjective: Patient resting in bed, has no recollection of events. tolerating current medication regimen. ON exam: normal neurological examination. Objective - Vital Signs/Intake and Output Vital Signs (last 24 hours): Temp Pulse Resp BP Pulse Ox 98.0 F 85 20 94/58 L 97 04/19/18 00:00 04/19/18 00:00 04/19/18 00:00 04/19/18 00:00 04/19/18 00:00 - Medications Medications: Current Medications Acetaminophen (Tylenol 325mg Tab) 650 mg PO Q6 PRN PRN Reason: Pain, Mild (1-3) Last Admin: 04/17/18 17:14 Dose: 650 mg Divalproex Sodium (Depakote Dr) 750 mg PO BID [facility] Last Admin: 04/18/18 17:17 Dose: 750 mg Levetiracetam 500 mg/ Dextrose 105 mls @ 420 mls/hr IVPB Q12H [facility] Last Admin: 04/19/18 02:34 Dose: 420 mls/hr Lorazepam (Ativan) 2 mg IVP Q3H PRN PRN Reason: Seizure activity - Labs Labs: 04/18/18 08:33 04/18/18 08:33 Assessment and Plan - Assessment and Plan (Free Text) Assessment: 27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 At this time, we do not have video eeg available at [facility], and REEG is not availabel on the weekends. We will plan to transfer to [facility] for Veeg in am if her events co ntinue. Please continue all medications Thank you Dr. metcalf
[2018-04-19 07:56] VITALS: O2SAT 100
[2018-04-19] MEDS: Divalproex 250 mg DR Tab PO SCH (09:13)
[2018-04-19] MEDS ORDERED: Sodium Chloride 0.9% 1,000 ML IV SCH (10:15)
--- NOTE | 2018-04-19 14:56 | CP.PCM.PN ---
Subjective - Date & Time of Evaluation Date of Evaluation: 04/19/18 Time of Evaluation: 14:54 - Subjective Subjective: Patient is having recurrent seizures, managed with IV Ativan periods of post ictal confusion. Awaiting transfer to a local hospital for continuous EEG monitoring. Blood pressure is low IV normal saline started at 120 cc an hour Objective - Vital Signs/Intake and Output Vital Signs (last 24 hours): Temp Pulse Resp BP Pulse Ox 97.7 F 98 H 20 94/64 L 100 04/19/18 07:55 04/19/18 11:00 04/19/18 07:55 04/19/18 07:55 04/19/18 14:00 - Medications Medications: Current Medications Acetaminophen (Tylenol 325mg Tab) 650 mg PO Q6 PRN PRN Reason: Pain, Mild (1-3) Last Admin: 04/17/18 17:14 Dose: 650 mg Divalproex Sodium (Depakote Dr) 750 mg PO BID [facility] Last Admin: 04/19/18 09:13 Dose: 750 mg Levetiracetam 500 mg/ Dextrose 105 mls @ 420 mls/hr IVPB Q12H [facility] Last Admin: 04/19/18 02:34 Dose: 420 mls/hr Sodium Chloride (Sodium Chloride 0.9%) 1,000 mls @ 120 mls/hr IV .Q8H20M [facility] Last Admin: 04/19/18 11:46 Dose: 120 mls/hr Lorazepam (Ativan) 2 mg IVP Q3H PRN PRN Reason: Seizure activity Last Admin: 04/19/18 10:01 Dose: 2 mg - Labs Labs: 04/18/18 08:33 04/18/18 08:33
[2018-04-19 16:17] VITALS: BP 99/66; PULSE 106; TEMP 98.5
--- NOTE | 2018-04-20 04:39 | PN ---
DATE: 04/19/2018 Please note that chart is reviewed and events noted. SUBJECTIVE: The patient had seizures last night, which I believe are non-epileptic in nature. She is a patient of Dr. Lasha Bansal and relayed to me today that she has a history of able to delineate clearly which ones were epileptic and which one were not. She states amnesia for the events last night, currently she is on Keppra and Depakote, moderate dose. PHYSICAL EXAMINATION: NEUROLOGIC: Normal neurological exam. No focal deficits noted. Speech is clear and fluent. Mini mental status is 30/30. IMAGING: CAT scan of the head is normal. IMPRESSION: This is a patient with non-epileptic events; however, we are not able to clearly document this. We do not have video electroencephalogram available in [facility] at this moment, so we will transfer her to [facility] for video electroencephalogram monitoring for 24 hours to answer the questions. PLAN: 1. Continue Depakote and Keppra. 2. Transfer her to [facility] for video EEG monitoring. Thank you for the consult. She will follow. Patti Rabago MD
== END 2018-04-19 20:30 | disposition short-term general hospital (02) ==
LOC: C.ER 12:33 → C.9E 16:16 → C.3T 17:10 → C.5S 04-17 00:20
PROVIDERS: ADMIT Internal Medicine Cardiovascular Disease; ATTEND Internal Medicine Cardiovascular Disease
DX: G40.909 Epilepsy, unspecified, not intractable, without status epilepticus (principal); J45.909 Unspecified asthma, uncomplicated; R41.0 Disorientation, unspecified
CPT/HCPCS: 36415; 70450; 80053; 80324; 80345; 80346; 80349; 80353; 80358; 80361; 81001; 82948; 83992; 84703; 85025; 92950; 93005; 95812; 99285; G0378; J1953; J2060; J7030